=== PATIENT | male | born 1960 | race Caucasian/White ===

== ENCOUNTER 2018-02-21 20:22 | Inpatient (IN) | payer MEDICARE ==
[~2018-02-21] VITALS: Ht 175.3 cm; Wt 96.6 kg
--- NOTE | ~2018-02-21 | CN ---
PATIENT NAME:DEX HART MEDICAL RECORD: [id number] : 60 LOCATION:. D.2123 ADMIT DATE: 02/21/18 ACCOUNT: [id number] CONSULTING PHYSICIAN: MARTÍN CEE MD REFERRING PHYSICIAN: CLIF ALEXANDER MD DATE OF CONSULTATION: 02/22/2018 CONSULT REQUESTING PHYSICIAN: Clif Alexander MD REASON FOR CONSULTATION: Shortness of breath, cough. HISTORY OF PRESENT ILLNESS: Mr. Hart is a 58-year-old gentleman who is sick for the last few days, with worsening shortness, he was coughing yellow phlegm. He was seen in the [facility] and found out he has multilobar pneumonia, acute exacerbation of COPD. He is using his oxygen at home. He denies any fever and chill. No night sweats. He is feeling a little bit better. REVIEW OF THE SYSTEMS: As in history of present illness. PAST MEDICAL HISTORY: 1. COPD. 2. Pneumonia. 3. He has severe gastroesophageal reflux disease. PAST SURGICAL HISTORY: Nonsignificant. ALLERGIES: There are no known drug allergies. MEDICATIONS: ProQuo was reviewed. PERSONAL AND SOCIAL HISTORY: The patient is still current everyday smoker. He is also a drinker. FAMILY HISTORY: Noncontributory. PHYSICAL EXAMINATION: GENERAL: Now, the patient is lying comfortably in bed. He is not in acute distress. VITAL SIGNS: The blood pressure is 132/73, pulse is 94, respiration is 18, temperature is 98.4, and SpO2 is 89% on 4 liters nasal cannula. HEENT: Conjunctivae are pink. Sclerae are not icteric. NECK: Neck is supple. No JVD. CHEST: There is prolonged expiration with wheezing. HEART: Rhythm regular. Normal sound. No murmur. ABDOMEN: Abdomen is soft. Bowel sounds present. No hepatosplenomegaly. RECTAL: Deferred. EXTREMITIES: No cyanosis. No clubbing. No pedal edema. CENTRAL NERVOUS SYSTEM: The patient is awake and alert. There is no obvious cranial nerve abnormality. The gait was not tested. CHEST RADIOGRAPH: There are multifocal bilateral infiltrates. LABORATORY DATA: CBC; WBC 11.2, hemoglobin 13.1, hematocrit 41, and platelet count is 209. Chemistry; sodium 139, potassium 4.1, bicarb is 41.5, BUN is 12, creatinine 0.6. ABG; the pH is 7.31, pCO2 is 85.3, pO2 is 81, bicarb is 43.1. CONSULT REPORT [id number] DEX HART IMPRESSION: 1. Acute exacerbation of COPD. 2. Multilobar pneumonia. 3. Hpkxc-pn-ohddkab hypoxic hypercapnic respiratory failure. 4. Respiratory acidosis. 5. Noncompensatory metabolic alkalosis. 6. Tobacco dependence syndrome. 7. Gastroesophageal reflux disease. RECOMMENDATION: 1. Continue supplemental oxygen BiPAP at night. 2. Albuterol/ipratropium nebulizer, Brovana and budesonide nebulizer. 3. Methylprednisolone IV. 4. Add Rocephin. Continue Levaquin. Check the alpha-1 level. Check immunoglobulin level. 5. The patient was counseled to quit smoking. GERD precaution given. The patient will need a BiPAP at home. Dr. Alexander, thank you for involving me in the care of Mr. Hart. TRANSINT:[id number] Voice Confirmation ID: [id number] DOCUMENT ID: [id number] MARTÍN CEE MD at 1806 CC: [id number] DICTATION DATE: 02/22/18 1447 HAND WOOD SANDER: 02/22/18 2017 DIS IN 02/27/18 [facility] [address] [place] [address]
[2018-02-22 02:31] VITALS: BP 145/81; BMI 28.1; BMI 31.0
[2018-02-22] MEDS ORDERED: NEURONTIN 300300 MG PO (02:56)
[2018-02-22] MEDS ORDERED: NEURONTIN600 MG PO (02:58)
[2018-02-22] MEDS ORDERED: PROTONIX20 MG PO (02:59)
[2018-02-22] MEDS ORDERED: KLONOPIN0.5 MG PO (03:00)
[2018-02-22] MEDS ORDERED: VENTOLIN HFA18 GM INH (03:04)
[2018-02-22] MEDS ORDERED: IPRAT-ALBUT 0.5-3 ML UPD (03:07)
[2018-02-22 04:00] VITALS: BP 140/79
[2018-02-22 05:59] LABS: BASOPHILS 0 % (0-2); EOSINOPHILS 0.4 % (0-7); HEMOGLOBIN 13.1 g/dL (13.5-17.5); IMMATURE GRANULOCYTES 0.4 % (0-5); LYMPHOCYTES 10.6 % (15-50); MCH 30.5 pg (26.0-34.0); MCV 95.6 fL (80.0-100.0); MEAN PLATELET VOLUME 10.1 fL (7.4-10.4); MONOCYTES 1.3 % (2-11); NEUTROPHILS 87.3 % (40-80); PLATELET COUNT 209 10x3/uL (130-400); RBC 4.29 10x6/uL (4.20-6.10); RDW 13.4 % (11.5-14.5); WBC 11.2 10x3/uL (4.8-10.8)
[2018-02-22 06:19] LABS: ALKALINE PHOSPHATASE 96 U/L (46-116); ALT (SGPT) 19 U/L (10-68); CALC OSMOLALITY 281 mosm/kg (275-300); CALCIUM 8.8 mg/dL (8.5-10.1); CHLORIDE - SERUM 100 mmol/L (98-107); CREATININE - SERUM 0.6 mg/dL (0.6-1.3); GLUCOSE 170 mg/dL (74-106); POTASSIUM - SERUM 4.1 mmol/L (3.5-5.1); PROTEIN - SERUM 7.3 g/dL (6.4-8.2); SODIUM 139 mmol/L (136-145); UREA NITROGEN 12 mg/dL (7-18); eGFR NON AFRICAN AMERICAN > 90 mL/min (90-120)
[2018-02-22 06:23] LABS: CARBON DIOXIDE 41.5 mmol/L (21.0-32.0)
[2018-02-22 08:00] VITALS: BP 127/79
[2018-02-22 11:02] VITALS: BP 132/73
[2018-02-22 13:49] VITALS: BMI 31.0
[2018-02-22 15:31] VITALS: BP 149/93
[2018-02-22 18:39] VITALS: Ht 175.3 cm; Wt 96.6 kg
[2018-02-22 20:24] VITALS: BP 120/75
[2018-02-23 06:07] LABS: BASOPHILS 0 % (0-2); EOSINOPHILS 0 % (0-7); HEMOGLOBIN 12.8 g/dL (13.5-17.5); IMMATURE GRANULOCYTES 0.3 % (0-5); LYMPHOCYTES 5.8 % (15-50); MCH 30.3 pg (26.0-34.0); MCV 94.6 fL (80.0-100.0); MEAN PLATELET VOLUME 10.7 fL (7.4-10.4); MONOCYTES 2.6 % (2-11); NEUTROPHILS 91.3 % (40-80); PLATELET COUNT 226 10x3/uL (130-400); RBC 4.23 10x6/uL (4.20-6.10); RDW 13.5 % (11.5-14.5); WBC 12.4 10x3/uL (4.8-10.8)
[2018-02-23 06:40] LABS: ALBUMIN 2.9 g/dL (3.4-5.0); ALKALINE PHOSPHATASE 82 U/L (46-116); ALT (SGPT) 20 U/L (10-68); BILIRUBIN - TOTAL 0.19 mg/dL (0.2-1.3); CALC OSMOLALITY 290 mosm/kg (275-300); CALCIUM 8.9 mg/dL (8.5-10.1); CARBON DIOXIDE 38.2 mmol/L (21.0-32.0); CHLORIDE - SERUM 100 mmol/L (98-107); CREATININE - SERUM 0.7 mg/dL (0.6-1.3); MAGNESIUM - SERUM 1.9 mg/dL (1.8-2.4); POTASSIUM - SERUM 4.1 mmol/L (3.5-5.1); PROTEIN - SERUM 6.8 g/dL (6.4-8.2); SODIUM 141 mmol/L (136-145); UREA NITROGEN 12 mg/dL (7-18); eGFR NON AFRICAN AMERICAN > 90 mL/min (90-120)
[2018-02-23 06:41] LABS: GLUCOSE 286 mg/dL (74-106)
[2018-02-23 07:51] VITALS: BP 132/69
[2018-02-23 10:25] VITALS: BP 148/80
[2018-02-23 15:31] VITALS: BP 130/68
[2018-02-23 20:31] VITALS: BP 141/86
[2018-02-24 04:00] VITALS: BP 144/85
[2018-02-24 05:43] VITALS: BP 142/85
[2018-02-24 05:58] LABS: BASOPHILS 0.1 % (0-2); EOSINOPHILS 0 % (0-7); HEMATOCRIT 38.7 % (42.0-54.0); HEMOGLOBIN 12.7 g/dL (13.5-17.5); IMMATURE GRANULOCYTES 0.3 % (0-5); LYMPHOCYTES 9.1 % (15-50); MCH 30.6 pg (26.0-34.0); MCHC 32.8 g/dL (31.0-37.0); MCV 93.3 fL (80.0-100.0); MEAN PLATELET VOLUME 10.5 fL (7.4-10.4); MONOCYTES 8.6 % (2-11); NEUTROPHILS 81.9 % (40-80); PLATELET COUNT 221 10x3/uL (130-400); RBC 4.15 10x6/uL (4.20-6.10); RDW 13.9 % (11.5-14.5); WBC 10.9 10x3/uL (4.8-10.8)
[2018-02-24 06:04] LABS: ALBUMIN 2.8 g/dL (3.4-5.0); ALKALINE PHOSPHATASE 75 U/L (46-116); CALCIUM 8.8 mg/dL (8.5-10.1); CARBON DIOXIDE 33.1 mmol/L (21.0-32.0); CHLORIDE - SERUM 103 mmol/L (98-107); CREATININE - SERUM 0.6 mg/dL (0.6-1.3); MAGNESIUM - SERUM 1.8 mg/dL (1.8-2.4); PROTEIN - SERUM 6.6 g/dL (6.4-8.2); SODIUM 140 mmol/L (136-145); eGFR NON AFRICAN AMERICAN > 90 mL/min (90-120)
[2018-02-24 06:06] LABS: ALT (SGPT) 37 U/L (10-68); CALC OSMOLALITY 285 mosm/kg (275-300); GLUCOSE 161 mg/dL (74-106); UREA NITROGEN 23 mg/dL (7-18)
[2018-02-24 07:44] VITALS: BP 140/77
[2018-02-24 11:23] VITALS: BP 138/78
[2018-02-24 12:16] LABS: IMMUNOGLOBULIN A 225 mg/dL (90-386); IMMUNOGLOBULIN G 1182 mg/dL (700-1600)
[2018-02-24 15:46] VITALS: BP 133/77
[2018-02-24 19:43] VITALS: BP 122/69
[2018-02-25 00:51] VITALS: BP 117/61
[2018-02-25 04:53] VITALS: BP 135/64
[2018-02-25 06:08] LABS: BASOPHILS 0 % (0-2); EOSINOPHILS 0 % (0-7); HEMATOCRIT 38.8 % (42.0-54.0); HEMOGLOBIN 12.5 g/dL (13.5-17.5); IMMATURE GRANULOCYTES 0.2 % (0-5); LYMPHOCYTES 8.5 % (15-50); MCHC 32.2 g/dL (31.0-37.0); MONOCYTES 6.9 % (2-11); NEUTROPHILS 84.4 % (40-80); PLATELET COUNT 210 10x3/uL (130-400); RBC 4.17 10x6/uL (4.20-6.10); RDW 13.8 % (11.5-14.5)
[2018-02-25 06:11] LABS: WBC 6.4 10x3/uL (4.8-10.8)
[2018-02-25 06:42] LABS: ALBUMIN 2.7 g/dL (3.4-5.0); ALKALINE PHOSPHATASE 69 U/L (46-116); BILIRUBIN - TOTAL 0.32 mg/dL (0.2-1.3); CALCIUM 8.6 mg/dL (8.5-10.1); CARBON DIOXIDE 33.8 mmol/L (21.0-32.0); CHLORIDE - SERUM 101 mmol/L (98-107); CREATININE - SERUM 0.6 mg/dL (0.6-1.3); POTASSIUM - SERUM 4.3 mmol/L (3.5-5.1); PROTEIN - SERUM 6.4 g/dL (6.4-8.2); SODIUM 140 mmol/L (136-145); UREA NITROGEN 18 mg/dL (7-18); eGFR NON AFRICAN AMERICAN > 90 mL/min (90-120)
[2018-02-25 06:49] LABS: ALT (SGPT) 92 U/L (10-68); CALC OSMOLALITY 286 mosm/kg (275-300); GLUCOSE 209 mg/dL (74-106)
[2018-02-25 07:00] VITALS: BP 132/87
[2018-02-25 13:03] VITALS: BP 137/74
[2018-02-25 16:56] VITALS: BP 95/59
[2018-02-25 20:17] VITALS: BP 121/71
[2018-02-26 00:57] VITALS: BP 114/51
[2018-02-26 04:28] VITALS: BP 149/78
[2018-02-26 05:22] LABS: ALBUMIN 2.7 g/dL (3.4-5.0); ALKALINE PHOSPHATASE 73 U/L (46-116); CALC OSMOLALITY 283 mosm/kg (275-300); CALCIUM 8.4 mg/dL (8.5-10.1); CARBON DIOXIDE 33.6 mmol/L (21.0-32.0); CHLORIDE - SERUM 103 mmol/L (98-107); CREATININE - SERUM 0.6 mg/dL (0.6-1.3); GLUCOSE 231 mg/dL (74-106); MAGNESIUM - SERUM 2.3 mg/dL (1.8-2.4); POTASSIUM - SERUM 4.5 mmol/L (3.5-5.1); PROTEIN - SERUM 6.1 g/dL (6.4-8.2); SODIUM 137 mmol/L (136-145); UREA NITROGEN 21 mg/dL (7-18); eGFR NON AFRICAN AMERICAN > 90 mL/min (90-120)
[2018-02-26 05:26] LABS: ALT (SGPT) 184 U/L (10-68)
[2018-02-26 05:36] LABS: BASOPHILS 0 % (0-2); EOSINOPHILS 0 % (0-7); HEMATOCRIT 38.5 % (42.0-54.0); HEMOGLOBIN 12.6 g/dL (13.5-17.5); IMMATURE GRANULOCYTES 0.3 % (0-5); MCH 30.6 pg (26.0-34.0); MCHC 32.7 g/dL (31.0-37.0); MCV 93.4 fL (80.0-100.0); MEAN PLATELET VOLUME 10.3 fL (7.4-10.4); MONOCYTES 11.8 % (2-11); NEUTROPHILS 78.9 % (40-80); PLATELET COUNT 216 10x3/uL (130-400); RBC 4.12 10x6/uL (4.20-6.10); RDW 13.6 % (11.5-14.5); WBC 6.5 10x3/uL (4.8-10.8)
[2018-02-26 09:01] VITALS: BP 129/70
[2018-02-26 13:30] VITALS: BP 131/75
[2018-02-26 20:00] VITALS: BP 147/78
[2018-02-27] VITALS: BP 173/74
[2018-02-27 04:00] VITALS: BP 137/76
[2018-02-27 04:57] LABS: BASOPHILS 0.1 % (0-2); EOSINOPHILS 0 % (0-7); HEMATOCRIT 42.4 % (42.0-54.0); HEMOGLOBIN 13.8 g/dL (13.5-17.5); IMMATURE GRANULOCYTES 0.5 % (0-5); MCH 30.2 pg (26.0-34.0); MCHC 32.5 g/dL (31.0-37.0); MCV 92.8 fL (80.0-100.0); MEAN PLATELET VOLUME 10.2 fL (7.4-10.4); MONOCYTES 8.1 % (2-11); NEUTROPHILS 81.3 % (40-80); PLATELET COUNT 240 10x3/uL (130-400); RBC 4.57 10x6/uL (4.20-6.10); RDW 13.6 % (11.5-14.5); WBC 7.6 10x3/uL (4.8-10.8)
[2018-02-27 06:19] LABS: ALBUMIN 2.9 g/dL (3.4-5.0); ALKALINE PHOSPHATASE 77 U/L (46-116); BILIRUBIN - TOTAL 0.35 mg/dL (0.2-1.3); CALC OSMOLALITY 286 mosm/kg (275-300); CALCIUM 8.9 mg/dL (8.5-10.1); CARBON DIOXIDE 35.3 mmol/L (21.0-32.0); CHLORIDE - SERUM 100 mmol/L (98-107); CREATININE - SERUM 0.7 mg/dL (0.6-1.3); GLUCOSE 232 mg/dL (74-106); MAGNESIUM - SERUM 2.4 mg/dL (1.8-2.4); POTASSIUM - SERUM 4.4 mmol/L (3.5-5.1); PROTEIN - SERUM 6.7 g/dL (6.4-8.2); SODIUM 139 mmol/L (136-145); UREA NITROGEN 18 mg/dL (7-18); eGFR NON AFRICAN AMERICAN > 90 mL/min (90-120)
[2018-02-27 06:21] LABS: ALT (SGPT) 259 U/L (10-68)
[2018-02-27 08:38] VITALS: BP 133/71
[2018-02-27 11:21] VITALS: BP 124/77
[2018-02-27] MEDS ORDERED: OMNICEF300 MG PO (12:10)
[2018-02-27] MEDS ORDERED: LEVAQUIN750 MG PO (12:10)
[2018-02-27] MEDS ORDERED: PREDNISONE10 MG PO (12:12)
== END 2018-02-27 16:13 | disposition home or self-care (01) | DRG 193 ==
LOC: D.M2 20:22 → D.SDCHOLD 02-24 10:50 → D.M2 02-27 16:13
PROVIDERS: Family Medicine; Internal Medicine Nephrology; Internal Medicine Pulmonary Disease
PROC: 5A09357 Assistance with Respiratory Ventilation, Less than 24 Consecutive Hours, Continuous Positive Airway Pressure (ICD-10-PCS; principal; 2018-02-25)
DX: J18.9 Pneumonia, unspecified organism (principal); J96.22 Acute and chronic respiratory failure with hypercapnia; J96.21 Acute and chronic respiratory failure with hypoxia; J44.0 Chronic obstructive pulmonary disease with (acute) lower respiratory infection; J44.1 Chronic obstructive pulmonary disease with (acute) exacerbation; J98.11 Atelectasis; E87.2 Acidosis; F17.203 Nicotine dependence unspecified, with withdrawal; K21.9 Gastro-esophageal reflux disease without esophagitis; F41.9 Anxiety disorder, unspecified